=== PATIENT | male | born 2000 | race Caucasian/White ===

== ENCOUNTER 2022-08-31 22:03 | Emergency (ER) | payer BC ==
[2022-09-01] MEDS ORDERED: HYDROcodone/Acetaminophen 10/325 mg Tablet ONE (00:02)
== END 2022-09-01 00:16 | disposition home or self-care (01) ==
LOC: ERS 22:03
DX: S53.401A Unspecified sprain of right elbow, initial encounter (principal); S50.11XA Contusion of right forearm, initial encounter; W20.8XXA Other cause of strike by thrown, projected or falling object, initial encounter; F17.200 Nicotine dependence, unspecified, uncomplicated